=== PATIENT | male | born 1970 | race Caucasian/White ===

== ENCOUNTER 2021-03-21 08:16 | Outpatient (CLI) | payer OTHER, SELFPAY ==
--- NOTE | 2021-03-21 08:26 | XR_ITS ---
WS: [id number] CHEST 2 VIEWS HISTORY: COUGH COMPARISON: None available. Lungs: Clear with no abnormality. No pleural effusion or pneumothorax. Cardiac size: Normal. Mediastinum/Aorta: Normal mediastinum. Bones: Normal. XR/XR chest 2V* [id number] IMPRESSION: Normal chest.
== END 2021-03-21 08:17 | disposition home or self-care (01) ==
PROVIDERS: Visit Provider Clinical Nurse Specialist Adult Health
DX: R05.9 Cough, unspecified (principal)
CPT/HCPCS: 71046

== ENCOUNTER 2021-05-20 08:46 | Outpatient (CLI) | payer OTHER, SELFPAY ==
[2021-05-20 09:11] VITALS: BMI 25.1
--- NOTE | 2021-05-20 09:11 | ECG_ITS ---
[facility] Test Date: 2021-05-20 Pat Name: Marko Ott Department: Room: Gender: Male Heel Sorter: Jerri Quevedo : 1970 Requested By: Salbador Guardado Order Number: [id number] Pfeiffer MD: Eladia Pennington M.D. Interpretive Statements NAME OF STUDY: TREADMILL STRESS TEST INDICATION: Chest Pressure Baseline blood pressure of 133/87 mm Hg, heart rate 74 beats per minute and oxygen saturation of 97%. EKG showed normal sinus rhythm, normal axis with normal ST-Ts. The patient exercised for 7 minutes on a [standard Tre protocol]. Patient attained a maximum heart rate of 164 beats per minute( 97 % of the maximum predicted heart rate) with a blood pressure at the peak exercise of 187/83 mm Hg and oxygen saturation of 97%. The EKG at the peak exercise revealed sinus tachycardia with no significant ST-T wave changes. Patient did [not have any chest pain or any significant arrhythmis with the exercise. The study was terminated due to exertional fatigue and shortness of breath. During the recovery phase, there were no new changes. Blood pressure at the end of the recovery phase was 137/93 mm Hg with a heart rate of 94 beats per minute and oxygen saturation of 96%. CONCLUSION: 1. Normal EKG response to treadmill exercise. 2. No exercise-induced chest pain or cardiac arrhythmia. 3. Good exercise tolerance, attained a maximum of 10.2 METs. Maximum VO2 of 35.7 ml/kg/min. 4. Baseline normal blood pressure with normal response to exercise. Electronically Signed On 05-20-2021 19:59:37 [employer] by Eladia Pennington M.D. [id number]
[2021-05-20 09:37] VITALS: BP 131/93; PULSE 99
== END 2021-05-20 08:47 | disposition home or self-care (01) ==
PROVIDERS: PCP Clinical Nurse Specialist Adult Health; Visit Provider Clinical Nurse Specialist Adult Health
DX: R07.89 Other chest pain (principal)
CPT/HCPCS: 93017

== ENCOUNTER 2023-04-10 14:54 | Outpatient (CLI) | payer OTHER, SELFPAY ==
--- NOTE | 2023-04-10 15:30 | US_ITS ---
WS: [id number] ULTRASOUND SOFT TISSUES RIGHT Achilles tendon HISTORY: right calf pain, suspect ruptured achilles tendon COMPARISON: None available. TECHNIQUE: 2-D and color Doppler imaging is submitted. No fluid or tear within the Achilles tendon is identified by ultrasound. A couple images there is a v brian small amount of fluid superficial to the Achilles tendon. There is no fluid gap present. IMPRESSION: No Achilles tendon tear identified by ultrasound. There is a tiny amount of fluid just posterior to t he Achilles tendon distally. May represent mild tenosynovitis. If continued concern for Achilles tendon tear consider MRI evaluation.
== END 2023-04-10 14:55 | disposition home or self-care (01) ==
LOC: RAD 14:54
PROVIDERS: PCP Clinical Nurse Specialist Adult Health; Visit Provider Clinical Nurse Specialist Adult Health
DX: M79.661 Pain in right lower leg (principal)
CPT/HCPCS: 76882

== ENCOUNTER 2023-04-13 13:59 | Outpatient (CLI) | payer OTHER, SELFPAY ==
--- NOTE | 2023-04-13 14:45 | USCV_ITS ---
NiotaMarko javier Age: 53 Gender: M : 1970 Exam Date: 04/13/2023 14:23 Ordering Phys: Salbador Guardado NP Technologist: EMILY [place]am [place] [facility] [place]: Knee Pain HISTORY: Lower extremity pain. PROCEDURES: Venous duplex imaging was performed in only the right lower extremity. The following venous structures were evaluated: common femoral vein, profunda vein, proximal portion of the greater saphenous vein, superficial femoral vein, and the popliteal vein. In addition, the posterior tibial and peroneal trunk were evaluated. Serial compression, augmentation maneuvers, and spectral Doppler flow evaluation were performed. FINDINGS: No evidence of DVT seen in any vessel visualized at this time. CONCLUSIONS No evidence of right lower extremity DVT. Arnol Santo MD (Electronically Signed) Final Date: 13 April 2023 16:00 S
== END 2023-04-13 14:00 | disposition home or self-care (01) ==
LOC: RAD 13:59
PROVIDERS: PCP Clinical Nurse Specialist Adult Health; Visit Provider Clinical Nurse Specialist Adult Health
DX: R55 Syncope and collapse (principal); M25.561 Pain in right knee; R60.0 Localized edema; I10 Essential (primary) hypertension
CPT/HCPCS: 80053; 80061; 85025; 93971

== ENCOUNTER → 2023-05-15 08:45 | Outpatient (BNVA) | payer OTHER, SELFPAY | PROVIDERS: PCP Clinical Nurse Specialist Adult Health; Visit Provider Student in an Organized Health Care Education/Training Program | DX: S86.111D Strain of other muscle(s) and tendon(s) of posterior muscle group at lower leg level, right leg, subsequent encounter (principal); X50.9XXD Other and unspecified overexertion or strenuous movements or postures, subsequent encounter | CPT/HCPCS: 99204 ==

== ENCOUNTER → 2023-07-09 07:50 | Outpatient (BNVA) | payer OTHER, SELFPAY | PROVIDERS: PCP Clinical Nurse Specialist Adult Health; Visit Provider Physician Assistant | DX: S86.111D Strain of other muscle(s) and tendon(s) of posterior muscle group at lower leg level, right leg, subsequent encounter (principal); X58.XXXD Exposure to other specified factors, subsequent encounter | CPT/HCPCS: 73590; 99213 ==

== ENCOUNTER 2023-08-04 07:39 | Outpatient (CLI) | payer OTHER, SELFPAY ==
--- NOTE | 2023-08-04 08:00 | MR_ITS ---
WS: [id number] MRI RIGHT LOWER EXTREMITY WITHOUT CONTRAST. COMPARISON: Radiographs 07/09/2023 Multiplanar, multisequence imaging is performed without contrast. No marrow edema or fracture. No widening of the medullary cavity. No soft tissue mass or displacement of the soft tissues. There is a very small amount of fluid adjacent to the distal Achilles tendon an d and Kager fat pad edema. There is a very small amount of increased T2 signal in the distal Achilles tendon but no tear. This examination was focused on the entire lower extremity. No thickening of the tendon is identified. Seen best on the axial imaging is a small amount of fluid in the retrocalcanea l bursa. Small amount of fluid and increased T2 signal in the flexor hallucis longus tendon and muscl e at the ankle. IMPRESSION: 1. No marrow signal abnormality. 2. There is soft tissue edema in the flexor hallucis longus tendon and muscle at the ankle but no te ar identified. 3. Mild tendinopathy in the distal Achilles tendon and edema within Kager fat pad. No Achilles tendo n tear. 4. Small amount of fluid in the retrocalcaneal bursa. Note: If symptoms persist dedicated MRI of the RIGHT ankle may be of benefit to better evaluate the t endons and the soft tissues.
== END 2023-08-04 07:40 | disposition home or self-care (01) ==
LOC: RAD 07:40
PROVIDERS: PCP Clinical Nurse Specialist Adult Health; Visit Provider Student in an Organized Health Care Education/Training Program
DX: S86.111D Strain of other muscle(s) and tendon(s) of posterior muscle group at lower leg level, right leg, subsequent encounter (principal); M79.661 Pain in right lower leg; R60.0 Localized edema; X58.XXXD Exposure to other specified factors, subsequent encounter
CPT/HCPCS: 73718

== ENCOUNTER → 2023-08-07 09:54 | Outpatient (BNVA) | payer OTHER, SELFPAY | PROVIDERS: PCP Clinical Nurse Specialist Adult Health; Visit Provider Physician Assistant | DX: S86.111D Strain of other muscle(s) and tendon(s) of posterior muscle group at lower leg level, right leg, subsequent encounter (principal); X58.XXXD Exposure to other specified factors, subsequent encounter | CPT/HCPCS: 99213 ==

== ENCOUNTER 2023-08-18 07:17 | Outpatient (RCR) | payer OTHER, SELFPAY | END 2023-09-01 23:59 | disposition home or self-care (01) | LOC: SPT 07:17 | PROVIDERS: PCP Student in an Organized Health Care Education/Training Program; Visit Provider Student in an Organized Health Care Education/Training Program | DX: S86.111D Strain of other muscle(s) and tendon(s) of posterior muscle group at lower leg level, right leg, subsequent encounter (principal); X58.XXXD Exposure to other specified factors, subsequent encounter | CPT/HCPCS: 97033; 97110; 97140; 97161 ==

== ENCOUNTER 2023-09-02 06:00 | Outpatient (RCR) | payer OTHER, SELFPAY | END 2023-09-11 23:59 | disposition home or self-care (01) | LOC: SPT 06:00 | PROVIDERS: PCP Student in an Organized Health Care Education/Training Program; Visit Provider Student in an Organized Health Care Education/Training Program | DX: S86.111D Strain of other muscle(s) and tendon(s) of posterior muscle group at lower leg level, right leg, subsequent encounter (principal); X58.XXXD Exposure to other specified factors, subsequent encounter | CPT/HCPCS: 97033; 97110; 97140; 97530 ==

== ENCOUNTER → 2023-09-08 09:53 | Outpatient (BNVA) | payer OTHER, SELFPAY | PROVIDERS: PCP Clinical Nurse Specialist Adult Health; Visit Provider Clinical Nurse Specialist Adult Health | DX: N40.1 Benign prostatic hyperplasia with lower urinary tract symptoms (principal); R35.1 Nocturia; R35.0 Frequency of micturition | CPT/HCPCS: 81000; G0103 ==